=== PATIENT | male | born 1950 | race Caucasian/White ===

== ENCOUNTER 2016-10-31 10:49 | Emergency (ER) | payer MEDICARE ==
[2016-10-31 11:18] VITALS: BP 153/82
--- NOTE | 2016-10-31 18:45 | ED ---
Upper Extremity Pain - HPI Summary HPI Summary: Patient presents with left hand tightness under a cast which was placed 1 week ago for fifth metacarpal fracture in [place]. He notes to numbness, tingling and swelling with a tightness feeling. He would like the cast off and recast. It was explained to the patient, we would be unable to place on a new cast, but will splint the hand. Numbness and tingling located over the 4th and 5th metacarpals without radiation. Patient is currently in an ulnar gutter splint cast. NV pulses +2 intact upon release of cast. Numbness and tingling subsided immediately upon release of the cast. - History of Current Complaint Chief Complaint: EDExtremityUpper Stated Complaint: ARM CAST FEELS TIGHT Time Seen by Provider: 10/31/16 11:19 Hx Obtained From: Patient Mechanism Of Injury: Unknown Onset/Duration: Traumatic Timing: Constant Severity Initially: Moderate Severity Currently: Moderate Pain Location: Hand Character: Stiffness Aggravating Factor(s): Nothing Alleviating Factor(s): Rest, Ice Associated Signs & Symptoms: Positive: Swelling, Numbness/Tingling Related History: Dominant Hand Right - Risk Factors Non-Orthopedic Risk Factor: Negative DVT Risk Factors: Negative Septic Arthritis Risk Factor: Negative Compartment Syndrome Risk Factors: Pain, Paresthesias - Allergies/Home Medications Allergies/Adverse Reactions: Allergies Allergy/AdvReac Type Severity Reaction Status Date / Time No Known Allergies Allergy Verified 10/31/16 11:18 PMH/Surg Hx/FS Hx/Imm Hx Previously Healthy: Yes - Immunization History Hx Pertussis Vaccination: No Immunizations Up to Date: Unable to Obtain/Confirm Infectious Disease History: No Infectious Disease History: Reports: Traveled Outside the [place] in Last 30 Days - [place] - Social History Occupation: Employed Full-time Lives: With Family Alcohol Use: Occasionally Hx Substance Use: No Substance Use Type: Reports: None Hx Tobacco Use: No Smoking Status (MU): Never Smoked Tobacco Review of Systems Constitutional: Negative Eyes: Negative Cardiovascular: Negative Respiratory: Negative Positive: no symptoms reported, see HPI Positive: Arthralgia, Myalgia Skin: Negative Positive: Paresthesia, Numbness Psychological: Normal All Other Systems Reviewed And Are Negative: Yes Physical Exam Triage Information Reviewed: Yes Vital Signs On Initial Exam: Initial Vitals Temp Pulse Resp BP Pulse Ox 97.9 F 56 17 153/82 98 10/31/16 11:15 10/31/16 11:15 10/31/16 11:15 10/31/16 11:15 10/31/16 11:15 Vital Signs Reviewed: Yes Appearance: Positive: Well-Appearing, Well-Nourished Skin: Positive: Warm, Skin Color Reflects Adequate Perfusion Head/Face: Positive: Normal Head/Face Inspection Neck: Positive: Supple, Nontender, No Lymphadenopathy Respiratory/Lung Sounds: Positive: Clear to Auscultation, Breath Sounds Present Cardiovascular: Positive: Normal, RRR Musculoskeletal: Positive: Pain @ - left hand Neurological: Positive: Sensory/Motor Intact, Alert, Oriented to Person Place, Time Psychiatric: Positive: Normal AVPU Assessment: Alert Procedures - Splinting Hand-Made Type: fiberglass Splint: ulnar gutter Pre-Proc Neuro Vasc Exam: normal Post-Proc Neuro Vasc Exam: normal Diagnostics - Vital Signs Vital Signs Temp Pulse Resp BP Pulse Ox 10/31/16 11:36 97.9 F 56 17 153/82 98 10/31/16 11:15 97.9 F 56 17 153/82 98 - Laboratory Lab Statement: Any lab studies that have been ordered have been reviewed, and results considered in the medical decision making process. Course/Dx - Course Course Of Treatment: Placed patient in ulnar gutter splint and encouraged to follow up within 1 week for ortho. He is traveling and passing through, but agrees to attempt to follow up with ortho in [place] and call his original ortho clinic. - Diagnoses Differential Diagnosis/HQI/PQRI: Positive: Fracture (Open), Fracture (Closed), Strain Provider Diagnoses: Orthopedic cast removal Discharge - Discharge Plan Condition: Stable Disposition: HOME Referrals: Chika De Paz MD [Medical Doctor] - Additional Instructions: Follow up with Dr. De Paz or follow up with another ortho clinic This splint can continue x 1 week Ibuprofen for pain and swelling Do not get splint wet
== END 2016-10-31 13:06 | disposition home or self-care (01) ==
LOC: ED 10:49
DX: S62.308D Unspecified fracture of other metacarpal bone, subsequent encounter for fracture with routine healing (principal); X58.XXXD Exposure to other specified factors, subsequent encounter
CPT/HCPCS: 99281